=== PATIENT | male | born 1985 | race African-American/Black ===

== ENCOUNTER 2025-08-28 15:07 | Emergency (ER) | payer SELFPAY ==
[2025-08-28] MEDS ORDERED: AMLODIPINE 5 MG TAB ONE (15:29)
--- NOTE | 2025-08-28 16:18 | RAD REPORT ---
EXAM: Chest Single View HISTORY: 39 years Male CHEST PAIN COMPARISON: No prior exams FINDINGS: LUNGS/PLEURA: The lungs are clear. No pleural effusions or pneumothorax. No pulmonary edema. CARDIAC/MEDIASTINUM: The cardiac silhouette is within normal limits. UPPER ABDOMEN: No significant abnormality. BONES: No acute abnormality. LINES/TUBES/OTHER: N/A IMPRESSION: No evidence of acute cardiopulmonary disease.
[2025-08-28 17:23] LABS: Absolute Lymphocytes (CBC) 1.7 K/uL (0.7-4.9); Hematocrit 47.7 % (39.6-49.0); Hemoglobin 16.7 g/dL (13.6-17.9); MCH 34.1 pg (27.0-35.0); MCHC 35.0 g/dL (32.0-36.0); MCV 97.5 fL (80-100); MPV 8.6 fL (7.6-11.3); Nucleated RBC Absolute Count 0.0 (0-0); Nucleated Red Blood Cells % 0.1 % (0-0); RBC Red Blood Cell Count 4.89 M/uL (4.33-5.43); White Blood Count 7.40 thou/uL (4.3-10.9)
--- NOTE | 2025-08-28 17:40 | RAD REPORT ---
Extremity Venous Uni Ltd CLINICAL INDICATION: Male, 39 years old.PAIN TECHNIQUE: Complete duplex sonography of the lower extremity veins was performed of the affected limb . The examination included compression for vein patency, color Doppler imaging and flow augmentation in response to distal compression of the distal external iliac, common femoral, femoral, popliteal, peroneal, tibial and great saphenous veins. [id number]. COMPARISON: No prior exams FINDINGS: Duplex sonography imaging demonstrates all deep veins examined to be fully compressible with spontane ous, phasic and augmented flow in the affected limb. IMPRESSION: No evidence of deep venous thrombosis in the left lower extremity.
[2025-08-28 18:33] LABS: Anion Gap 8.6 mEq/L (5.0-15.0); BUN Blood Urea Nitrogen 17.0 mg/dL (7-18); Glucose Level 107.0 mg/dL (74-106); Magnesium 2.4 mg/dL (1.6-2.4); Potassium 3.6 mEq/L (3.5-5.1); Troponin High Sensitivity 4.9 pg/mL (<58.9)
--- NOTE | 2025-08-28 19:32 | EDPHYS ---
Physician Documentation [facility] Name: Thomas Rawls III Age: 39 yrs Sex: Male : 1985 Arrival Date: 08/28/2025 Time: 15:07 Bed 14 Private MD: ED Physician Woody Medrano HPI: 08/28 15:17 This 39 yrs old Black Male presents to ER via Unassigned with complaints of High Blood kb Pressure. 15:17 Pt is a 39 year old male who presents for high blood pressure that was brought to his kb attention 2 days ago during a work physical. States he took medication for hypertension in 2022, but stopped it because his BP decreased when he started working out. States it did take amlodipine 5mg daily. States he has had some left sided chest pain intermittently for the last 2 weeks. Also reports pain to left calf for 2 days, history of DVT. Historical: - Allergies: 15:26 No Known Allergies; jl7 - Home Meds: 15:26 amlodipine 5 mg tablet [Active]; jl7 - PMHx: 15:26 Hypertensive disorder; jl7 - Immunization history:: Adult Immunizations unknown. - Infectious Disease History:: Denies. - Social history:: Smoking status: Reported history of juuling and/or vaping. Patient uses alcohol, on a daily basis. admits to "couple of beers" a day. ROS: 15:21 Constitutional: As per HPI kb Exam: 15:21 Constitutional: This is a well developed, well nourished patient who is awake, alert, kb and in no acute distress. Head/Face: Normocephalic, atraumatic. ENT: Moist Mucous membranes Cardiovascular: Regular rate Respiratory: Respirations even and unlabored. No increased work of breathing. Talking in full sentences Skin: Warm, dry with normal turgor. Normal color. MS/ Extremity: Pulses equal, no cyanosis. Neurovascular intact. Full, normal range of motion. Neuro: Awake and alert, GCS 15, oriented to person, place, time, and situation. 19:29 ECG was reviewed by the Attending Physician. kb Vital Signs: 15:25 BP 162 / 103; Pulse 93; Resp 15; Temp 97; Pulse Ox 99% ; Weight 88.45 kg; Height 5 ft. jl7 6 in. ; Pain 0/10; 18:00 BP 159 / 104; Pulse 97; Resp 15; Pulse Ox 100% ; me1 19:00 BP 129 / 97; Pulse 75; Resp 16; Pulse Ox 99% ; me1 19:30 BP 145 / 98; Pulse 75; Resp 15; Temp 98.3; Pulse Ox 100% ; me1 15:25 Body Mass Index 31.47 (88.45 kg, 167.64 cm) jl7 15:25 Pain Scale: Adult jl7 MDM: 15:13 Medical Screening Exam initiated kb 19:29 Differential diagnosis: hypertensive crisis, Malignant HTN, acute mi, cad, arrhythmia. kb Data reviewed: vital signs, nurses notes. Historians other than the Patient: Spouse/Significant Other: significant other. Counseling: I had a detailed discussion with the patient and/or guardian regarding the historical points, exam findings, and any diagnostic results supporting the discharge/admit diagnosis, lab results, radiology results, the need for outpatient follow up, a family practitioner, to return to the emergency department if symptoms worsen or persist or if there are any questions or concerns that arise at home. Special discussion: I have referred the patient to see his PCP for further evaluation of high blood pressure. ED course: Will prescribe amlodipine 5mg daily since pt took that in the past. Pt educated on keeping bp log and following up with PCP. 08/28 15:22 Order name: Basic Metabolic Panel; Complete Time: 18:49 kb 08/28 15:22 Order name: CBC with Diff; Complete Time: 17:25 kb 08/28 15:22 Order name: Magnesium; Complete Time: 18:49 kb 08/28 15:22 Order name: Troponin HS; Complete Time: 18:49 kb 08/28 15:22 Order name: XRAY Chest (1 view); Complete Time: 16:19 kb 08/28 15:22 Order name: US Extremity Venous Unilateral Ltd; Complete Time: 17:44 kb 08/28 15:22 Order name: EKG; Complete Time: 15:22 kb 08/28 15:22 Order name: Cardiac monitoring; Complete Time: 19:07 kb 08/28 15:22 Order name: EKG - Nurse/Tech; Complete Time: 19:07 kb 08/28 15:22 Order name: IV Saline Lock; Complete Time: 17:14 kb 08/28 15:22 Order name: Labs collected and sent; Complete Time: 17:14 kb 08/28 15:22 Order name: O2 Per Protocol; Complete Time: 18:26 kb 08/28 15:22 Order name: O2 Sat Monitoring; Complete Time: 18:26 kb 08/28 17:28 Order name: Labs - recollect needed: recollect green top; Complete Time: 18:25 bd 08/28 17:44 Order name: Vital Signs; Complete Time: 18:25 kb EC:29 Rate is 83 beats/min. Rhythm is regular. QRS Bowlus is Normal. ME interval is normal at kb 164 msec. QRS interval is normal at 87 msec. QT interval is normal at 399 msec. Administered Medications: 15: Drug: amLODIPine PO 5 mg PO once Route: PO; 7 18:25 Follow up: Response: No adverse reaction me1 Disposition: 19:18 I was immediately available on-site in the Emergency Department for consultation in the ms3 care of the patient. Disposition Summary: 08/28/25 19:31 Discharge Ordered Notes: Location: Home kb Condition: Stable kb Diagnosis - Essential (primary) hypertension kb Followup: kb - With: Emergency Department - When: As needed - Reason: Worsening of condition Followup: kb - With: Private Physician - When: 2 - 3 days - Reason: Recheck today's complaints, Continuance of care, Re-evaluation by your physician Discharge Instructions: - Discharge Summary Sheet kb - Hypertension, Adult, [id number] kb - How to Take Your Blood Pressure, [id number] kb - Managing Your Hypertension kb - Form - Blood Pressure Record Sheet kb Forms: - Medication Reconciliation Form kb - Antibiotic Education kb - Prescription Opioid Use kb - Patient Portal Instructions kb - Leadership Thank You Letter kb Prescriptions: - Norvasc 5 mg Oral tablet - take 1 tablet ORAL route once daily; 30 tablet; Refills: 0, Product Selection kb Permitted Signatures: Dispatcher [employer] Lotus Pérez FNP-C FNP-Hawa Thrasher Jahala, RN RN jl7 Woody Medrano DO DO ms3 Cinthya Willson RN me1 Corrections: (The following items were deleted from the chart) 15:21 15:17 Pt is a 39 year old male who presents for high blood pressure that was brought to his attention 2 days ago during a work physical. States he took medication for hypertension in 2022, but stopped it because his BP decreased when he started working out. States it did take amlodipine 5mg daily. States he has had some left sided chest pain intermittently for the last 2 weeks. . kb
--- NOTE | 2025-08-28 19:32 | ER ---
Nurse's Notes [facility] Name: Thomas Rawls III Age: 39 yrs Sex: Male : 1985 Arrival Date: 08/28/2025 Time: 15:07 Bed 14 Private MD: Diagnosis: Essential (primary) hypertension Presentation: 08/28 15:25 Chief complaint: Patient states: Work sent for HTN, pt reports intermittent mild CP x 2 jl7 weeks, left calf pain x2 days. Coronavirus screen: At this time, the client does not indicate any symptoms associated with coronavirus-19. Ebola Screen: No symptoms or risks identified at this time. Initial Sepsis Screen: Does the patient meet any 2 criteria? No. Patient's initial sepsis screen is negative. Does the patient have a suspected source of infection? No. Patient's initial sepsis screen is negative. Risk Assessment: Do you want to hurt yourself or someone else? Patient reports no desire to harm self or others. Onset of symptoms is unknown. 15:25 Method Of Arrival: Ambulatory jl7 15:25 Acuity: SHIVA 3 jl7 Triage Assessment: 15:26 General: Appears in no apparent distress. uncomfortable, Behavior is calm, cooperative, jl7 appropriate for age. Pain: Denies pain. Historical: - Allergies: 15:26 No Known Allergies; jl7 - Home Meds: 15:26 amlodipine 5 mg tablet [Active]; jl7 - PMHx: 15:26 Hypertensive disorder; jl7 - Immunization history:: Adult Immunizations unknown. - Infectious Disease History:: Denies. - Social history:: Smoking status: Reported history of juuling and/or vaping. Patient uses alcohol, on a daily basis. admits to "couple of beers" a day. Screenin:20 [facility] ED Fall Risk Assessment (Adult) History of falling in the last 3 months, me1 including since admission No falls in past 3 months (0 pts) Confusion or Disorientation No (0 pts) Intoxicated or Sedated No (0 pts) Impaired Gait No (0 pts) Mobility Assist Device Used No (0 pt) Altered Elimination No (0 pt) Score/Fall Risk Level 0 - 2 = Low Risk Maintained a safe environment, Provided non-skid footwear, Hourly rounding (assess needs \\T\\ fall precautionary measures) done. Abuse screen: Denies threats or abuse. Nutritional screening: No deficits noted. Tuberculosis screening: No symptoms or risk factors identified. Assessment: 17:20 General: Appears comfortable, well groomed, well developed, well nourished, Behavior is me1 calm, cooperative, appropriate for age, Reports Work sent for HTN, pt reports intermittent mild CP x 2 weeks, left calf pain x2 days. Pain: Denies pain. Neuro: Level of Consciousness is awake, alert, obeys commands, Oriented to person, place, time, situation, Appropriate for age. Cardiovascular: Reports chest pain, intermittent for 2 weeks Patient's skin is warm and dry. Respiratory: Airway is patent Respiratory effort is even, unlabored, Respiratory pattern is regular, symmetrical. GI: No signs and/or symptoms were reported involving the gastrointestinal system. : No signs and/or symptoms were reported regarding the genitourinary system. EENT: No signs and/or symptoms were reported regarding the EENT system. Derm: Skin is intact, is healthy with good turgor, Skin is normal. Musculoskeletal: Reports pain in left calf x 2 days. Vital Signs: 15:25 BP 162 / 103; Pulse 93; Resp 15; Temp 97; Pulse Ox 99% ; Weight 88.45 kg; Height 5 ft. jl7 6 in. ; Pain 0/10; 18:00 BP 159 / 104; Pulse 97; Resp 15; Pulse Ox 100% ; me1 19:00 BP 129 / 97; Pulse 75; Resp 16; Pulse Ox 99% ; me1 19:30 BP 145 / 98; Pulse 75; Resp 15; Temp 98.3; Pulse Ox 100% ; me1 15:25 Body Mass Index 31.47 (88.45 kg, 167.64 cm) jl7 15:25 Pain Scale: Adult jl7 ED Course: 15:10 Patient arrived in ED. al6 15:12 Lotus Galan FNP-C [facility]. kb 15:12 Woody Medrano DO is Attending Physician. kb 15:26 Triage completed. jl7 15:26 Arm band placed on right wrist. jl7 16:00 US Extremity Venous Unilateral Ltd In Process Unspecified. EDMS 16:14 XRAY Chest (1 view) In Process Unspecified. EDMS 17:13 Maryanne Zhou, SAVANAH is Primary Nurse. ap3 17:14 Initial lab(s) drawn, by home performance laborer, sent to lab. Inserted saline lock: 20 gauge in left ts3 antecubital area, using aseptic technique. Blood collected. Flushed with 10 mL NS. 17:20 Patient has correct armband on for positive identification. Bed in low position. Call me1 light in reach. Side rails up X2. Provided Education on: POC. Verbalized understanding.. Client placed on continuous cardiac and pulse oximetry monitoring. NIBP monitoring applied. bricklayer paving brick on. Pulse ox on. NIBP on. 17:20 No provider procedures requiring assistance completed. me1 18:51 EKG done, by ED staff, reviewed by Lotus BERGMAN. me1 19:51 IV discontinued, intact, bleeding controlled, No redness/swelling at site. Pressure me1 dressing applied. Administered Medications: 15:31 Drug: amLODIPine PO 5 mg PO once Route: PO; jl7 18:25 Follow up: Response: No adverse reaction me1 Medication: 17:20 VIS not applicable for this client. me1 Outcome: 19:31 Discharge ordered by MD. serrano 19:51 Discharged to home ambulatory, me1 19:51 Condition: stable 19:51 Discharge instructions given to patient, Instructed on discharge instructions, follow up and referral plans. medication usage, Demonstrated understanding of instructions, follow-up care, medications, Prescriptions given X 1, 19:51 Patient left the ED. me1 Signatures: Dispatcher [employer] EDMS Lotus Galan FNP-C FNP-Ckb Leal, Jahala, RN RN jl7 Maryanne Zhou RN RN ap3 Cinthya Willson RN RN me1 Itzel Dee al6 Melina Davis ts3 Corrections: (The following items were deleted from the chart) 18:04 18:04 BP 159 / 104; Pulse 97bpm; Resp 15bpm; Pulse Ox 100%; me1 me1 18:26 15:25 Chief complaint: Patient states: Work sent for HTN, pt reports intermittent mild me1 CP x 2 weeks, left calf pain x2 days jl7 19:02 15:25 Chief complaint: Patient states: Work sent for HTN, pt reports intermittent mild me1 CP x 2 weeks, left calf pain x2 days me1
[2025-08-29 01:53] VITALS: BP 145/98; TEMP 98.3; O2SAT 100
== END 2025-08-28 19:51 | disposition home or self-care (01) ==
LOC: ER 15:07
DX: I10 Essential (primary) hypertension (principal)
CPT/HCPCS: 36415; 71045; 80048; 83735; 84484; 85025; 93005; 93971; 99285